=== PATIENT | male | born 1965 | race Caucasian/White ===

== ENCOUNTER → 2022-11-12 | Outpatient (CLI) | payer BC ==
[~2022-11-12] MED LIST: AMLO10 PO; ASPI81CH; ASPI81EC PO; DIAZ2 PO; Diovan320 MG PO; GARCINIA CAMBO1 EACH; HYDACE5 PO; LISI20 PO; METF500; METF500 PO; NAPR500 PO; OLME20
== END ==
LOC: LAB SHORT 10:52 → LAB 10:52 → PLD 10:52
DX: D40.8 Neoplasm of uncertain behavior of other specified male genital organs (principal)
CPT/HCPCS: 88312